=== PATIENT | female | born 1985 | race Caucasian/White ===

== ENCOUNTER 2020-07-31 01:39 | Emergency (ER) | payer BC ==
[~2020-07-31] VITALS: Ht 167.6 cm; Wt 88.9 kg
--- NOTE | 2020-07-31 01:49 | NUR ---
Dr. Patel at bedside for MSE.
[2020-07-31] MEDS ORDERED: adderal PO (02:02)
[2020-07-31] MEDS: ASPIRIN 81 MG TAB.CHEW PO ONE (02:09)
[2020-07-31] MEDS: LORAZEPAM 0.5 MG TABLET PO ONE (02:09)
[2020-07-31] MEDS ORDERED: LORAZEPAM 1 MG TABLET ONE (02:13)
[2020-07-31] MEDS ORDERED: ASPIRIN 81 MG TAB.CHEW ONE (02:13)
--- NOTE | 2020-07-31 02:28 | NUR ---
Xray at bedside.
[2020-07-31 02:30] LABS: BASOPHILS % (AUTO) 0.7 % (0.0-2.0); EOSINOPHILS # (AUTO) 0.1 K/uL (0.0-0.7); EOSINOPHILS % (AUTO) 1.6 % (0.0-7.0); HEMATOCRIT 33.7 % (31.2-41.9); HEMOGLOBIN 11.3 g/dL (10.9-14.3); LYMPHOCYTES # (AUTO) 2.1 K/uL (20.0-40.0); LYMPHOCYTES % (AUTO) 37.4 % (20.5-51.5); MEAN CORPUSCULAR HEMOGLOBIN 28.8 uug (24.7-32.8); MEAN CORPUSCULAR HGB CONC 33 g/dL (32.3-35.6); MEAN CORPUSCULAR VOLUME 86.2 fL (75.5-95.3); MONOCYTES # (AUTO) 0.5 K/uL (2.0-10.0); MONOCYTES % (AUTO) 8.5 % (0.0-11.0); NEUTROPHILS # (AUTO) 2.9 K/uL (1.8-8.9); NEUTROPHILS % (AUTO) 51.8 % (38.5-71.5); PLATELET COUNT (AUTO) 247 K/uL (179-408); RED BLOOD CELL COUNT(AUTO) 3.91 MIL/uL (3.63-4.92); WHITE BLOOD COUNT (AUTO) 5.5 K/uL (3.8-11.8)
[2020-07-31 02:31] LABS: CREATININE 0.8 mg/dL (0.6-1.3); POTASSIUM 3.6 mmol/L (3.5-5.1)
[2020-07-31 02:43] LABS: BILIRUBIN,DIRECT 0.1 mg/dL (0.0-0.2); BILIRUBIN,TOTAL 0.3 mg/dL (0.2-1.0); TOTAL PROTEIN, SERUM 6.2 g/dL (6.4-8.2)
[2020-07-31] MEDS ORDERED: ALPR0.5T PO (03:02)
--- NOTE | 2020-07-31 05:00 | NUR ---
Patient eloped from facility. ER physician notified. Patient stated she has an emergency at home, she cannot wait and needs to go right now. IV site discontinued.
== END 2020-07-31 05:40 | disposition left against medical advice (07) ==
LOC: ER 01:41
DX: R07.9 Chest pain, unspecified (principal); Q05.9 Spina bifida, unspecified; F90.9 Attention-deficit hyperactivity disorder, unspecified type; Z79.899 Other long term (current) drug therapy; F41.9 Anxiety disorder, unspecified
CPT/HCPCS: 36415; 70030-TC; 71045; 85025; 93005; A4663